=== PATIENT | male | born 2000 | race African-American/Black ===

== ENCOUNTER 2019-12-14 02:36 | Inpatient (IN) | payer BC ==
[~2019-12-14] VITALS: Ht 163.8 cm; Wt 74.1 kg
--- NOTE | 2019-12-14 02:43 | NUR ---
TBAND [id number]
[2019-12-14 02:55] LABS: BASOPHILS 0.3 % (0-2); EOSINOPHILS 4.4 % (0-7); HEMATOCRIT 47.7 % (42.0-54.0); IMMATURE GRANULOCYTES 0.1 % (0-5); LYMPHOCYTES 60.1 % (15-50); MCH 32.3 pg (26.0-34.0); MCHC 35.6 g/dL (31.0-37.0); MCV 90.5 fL (80.0-100.0); MEAN PLATELET VOLUME 10.3 fL (7.4-10.4); MONOCYTES 6.2 % (2-11); NEUTROPHILS 28.9 % (40-80); PLATELET COUNT 249 10x3/uL (130-400); RBC 5.27 10x6/uL (4.20-6.10); RDW 14.4 % (11.5-14.5); WBC 8.9 10x3/uL (4.8-10.8)
--- NOTE | 2019-12-14 02:56 | NUR ---
OFFICER MARK RODRÍGUEZ #[id number]
--- NOTE | 2019-12-14 03:15 | NUR ---
VERBAL ORDER IRRIGATE WOUNDS WITH 2 LITERS STERILE NS.
[2019-12-14 03:24] LABS: ALBUMIN 4.1 g/dL (3.4-5.0); ANION GAP 13.2 mmol/L (8-16); BILIRUBIN - TOTAL 0.46 mg/dL (0.2-1.3); CALCIUM 8.1 mg/dL (8.5-10.1); CARBON DIOXIDE 26.5 mmol/L (21.0-32.0); CREATININE - SERUM 1.3 mg/dL (0.6-1.3); PROTEIN - SERUM 7.5 g/dL (6.4-8.2)
[2019-12-14 03:30] VITALS: BP 142/76
[2019-12-14 03:39] LABS: POTASSIUM - SERUM 2.7 mmol/L (3.5-5.1)
[2019-12-14 04:30] VITALS: BP 132/86
[2019-12-14 05:30] VITALS: BP 125/83
--- NOTE | 2019-12-14 05:45 | NUR ---
0545 Patient arrive to room via stretcher. Placed to monitor with alarms set and V/S obtained. Obtained history. Bed placed in low position with alarms on. Call light within reach.
[2019-12-14 07:00] VITALS: BP 138/84
[2019-12-14 07:51] VITALS: BP 138/84; Ht 163.8 cm; Wt 74.1 kg
[2019-12-14 08:00] VITALS: BP 122/76
[2019-12-14 11:21] LABS: ANION GAP 10.2 mmol/L (8-16); CALCIUM 8.6 mg/dL (8.5-10.1); CARBON DIOXIDE 29.3 mmol/L (21.0-32.0); CREATININE - SERUM 1.3 mg/dL (0.6-1.3)
[2019-12-14 11:22] LABS: POTASSIUM - SERUM 4.5 mmol/L (3.5-5.1)
--- NOTE | 2019-12-14 11:41 | NUR ---
NOTIFIED ABOUT PT BEING CONSIDERED FOR DISCHARGE. WAS OK WITH PT GOING HOME.
== END 2019-12-14 13:11 | disposition home or self-care (01) | DRG 605 ==
LOC: D.ER 02:36 → D.ICU 04:31
PROVIDERS: Family Medicine; ADMIT Family Medicine; ATTEND Family Medicine
PROC: 0HQ0XZZ Repair Scalp Skin, External Approach (ICD-10-PCS; principal; 2019-12-14)
DX: S01.02XA Laceration with foreign body of scalp, initial encounter (principal); W34.00XA Accidental discharge from unspecified firearms or gun, initial encounter; F17.200 Nicotine dependence, unspecified, uncomplicated; E87.6 Hypokalemia; F10.20 Alcohol dependence, uncomplicated; F12.20 Cannabis dependence, uncomplicated

== ENCOUNTER 2020-03-27 13:59 | Emergency (ER) | payer BC ==
[~2020-03-27] VITALS: Ht 163.8 cm; Wt 74.5 kg
[2020-03-27 14:09] VITALS: BP 148/96; Ht 163.8 cm; Wt 74.5 kg
== END 2020-03-27 15:45 | disposition home or self-care (01) ==
LOC: D.ER 13:59
DX: Z48.02 Encounter for removal of sutures (principal); J45.909 Unspecified asthma, uncomplicated; Z72.0 Tobacco use